=== PATIENT | male | born 1980 | race Caucasian/White ===

== ENCOUNTER 2017-08-18 07:08 | Emergency (ER) | payer OTHER, SELFPAY ==
[2017-08-18 08:07] LABS: Absolute Lymphocytes (CBC) 1.7 K/uL (0.7-4.9); Absolute Monocytes 0.5 K/uL (0.1-1.3); Absolute Neutrophil 5.3 K/uL (1.8-8.0); Basophils % 0.8 % (0-1.3); Eosinophils % 5.6 % (0-4.4); Hematocrit 45.7 % (39.6-49.0); Lymphocytes % 21.4 % (15.3-44.8); MCH 30.5 pg (27.0-35.0); MCV 89.2 fL (80-100); MPV 7.9 fL (7.6-11.3); Monocytes % 6.6 % (3.3-12.3); RBC Red Blood Cell Count 5.12 M/uL (4.33-5.43)
[2017-08-18 08:30] LABS: Bicarbonate 27 mEq/L (21-31); Glucose Level 118 mg/dL (65-120); Sodium Level 137 mEq/L (135-145)
[2017-08-18 08:36] LABS: ALT/SGPT 30 IU/L (10-60); AST/SGOT 21 IU/L (10-42); Albumin 4.2 g/dL (3.2-5.5); Alkaline Phosphatase 73 IU/L (42-121); BUN Blood Urea Nitrogen 10 mg/dL (6-20); Bilirubin Direct 0.1 mg/dL (0-0.2); Bilirubin Total 0.5 mg/dL (0.3-1.2); Protein, Total 7.3 g/dL (6.0-8.3)
[2017-08-18 08:36] LABS: Barbiturates NEGATIVE; Benzodiazepines NEGATIVE; Cocaine NEGATIVE; Opiates NEGATIVE; Phencyclidine NEGATIVE; THC Cannibis NEGATIVE
[2017-08-18 08:44] LABS: Urine Blood NEGATIVE (NEG); Urine Glucose NEGATIVE (NEG); Urine Protein NEGATIVE (NEG)
[2017-08-18 08:56] LABS: Salicylates Level < 4.0 mg/dl (<30)
[2017-08-18 08:56] LABS: METHAMPHETAM POSITIVE
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
--- NOTE | 2017-08-18 09:35 | RAD REPORT ---
EXAM DESCRIPTION: US - Extremity Nonvascular Complete - 08/18/2017 8:10 am CLINICAL HISTORY: Palpable lump right antecubital fossa. COMPARISON: None. TECHNIQUE: Real-time sonographic evaluation of the area of interest was performed. FINDINGS: No well-formed fluid collection or mass is identified. Some thickening involving the super ficial vein in this region is noted.
[2017-08-18 15:24] LABS: Alcohol Serum/Plasma < 10 mg/dl
[2017-08-19 21:31] LABS: HIV 1/2 Antibody Diff Not indicated.; HIV AG/AB 4TH GEN Non-reactive (Non-reactive)
[2017-08-20 03:47] LABS: HBsAG Nonreactive (Nonreactive)
== END 2017-08-18 09:57 | disposition home or self-care (01) ==
LOC: ER 07:08
DX: T50.903A Poisoning by unspecified drugs, medicaments and biological substances, assault, initial encounter (principal); W46.1XXA Contact with contaminated hypodermic needle, initial encounter; Y92.9 Unspecified place or not applicable; Z72.0 Tobacco use; I10 Essential (primary) hypertension
CPT/HCPCS: 76881; 80048; 80076; 80307; 80320; 80329; 81003; 85025; 86705; 86803; 87340; 87389; 99284